=== PATIENT | female | born 1985 | race Hispanic/Latino ===

== ENCOUNTER 2022-10-05 07:56 | Day surgery (SDC) | payer OTHER ==
[~2022-10-05] VITALS: Ht 160 cm; Wt 83.9 kg
[~2022-10-05 07:56] MED LIST: OMEPRA/BICAR1 CAP PO; OZEMPIC2 MG IJ
[2022-10-05 09:46] VITALS: BP 116/72
== END 2022-10-05 09:57 | disposition home or self-care (01) | DRG 392 ==
LOC: ENDO 07:56 → ORM 11:35
PROVIDERS: ATTEND Internal Medicine Gastroenterology
PROC: 0DB98ZX Excision of Duodenum, Via Natural or Artificial Opening Endoscopic, Diagnostic (ICD-10-PCS; principal; 2022-10-05)
PROC: 0DB68ZX Excision of Stomach, Via Natural or Artificial Opening Endoscopic, Diagnostic (ICD-10-PCS; 2022-10-05)
PROC: 0DB58ZX Excision of Esophagus, Via Natural or Artificial Opening Endoscopic, Diagnostic (ICD-10-PCS; 2022-10-05)
DX: K29.50 Unspecified chronic gastritis without bleeding (principal); B96.81 Helicobacter pylori [H. pylori] as the cause of diseases classified elsewhere; K22.89 Other specified disease of esophagus